=== PATIENT | male | born 1985 | race Caucasian/White ===

== ENCOUNTER 2023-03-27 06:18 | Inpatient (IN) | payer SELFPAY ==
[~2023-03-27] VITALS: Ht 188 cm; Wt 130.2 kg
[2023-03-27] MEDS ORDERED: LORAZEPAM 2MG/ML CPJ IM STA (06:28)
[2023-03-27] MEDS ORDERED: DIPHENHYDRAMINE 50MG/ML VIAL IM STA (06:28)
[2023-03-27] MEDS ORDERED: HALOPERIDOL LACTATE 5MG/ML VIAL IM STA (06:28)
[2023-03-27] MEDS ORDERED: LORAZEPAM 2MG/ML CPJ IM ONE (06:45)
[2023-03-27] MEDS ORDERED: HALOPERIDOL LACTATE 5MG/ML VIAL IM ONE (06:45)
[2023-03-27 07:44] LABS: HEMATOCRIT. 46.1 % (42.0-52.0); HEMOGLOBIN. 15.4 g/dL (14.0-18.0); MEAN CORPUSCULAR HEMOGLOBIN 28.7 pg (28.0-32.0); MEAN CORPUSCULAR HGB CONC 33.4 g/dL (31.0-37.0); MEAN CORPUSCULAR VOLUME 85.9 fL (80.0-94.0); MEAN PLATELET VOLUME 8.7 fl (7.4-10.4); PLATELET 252 x1000/uL (130-400); RED BLOOD CELL COUNT 5.37 mill/uL (4.7-6.1); RED CELL DISTRIBUTION WIDTH 13.8 % (11.6-14.6); WHITE BLOOD COUNT 21.2 x1000/uL (4.5-11.0)
[2023-03-27 07:56] LABS: DIFFERENTIAL COMMENT 1
[2023-03-27 08:31] LABS: CHLORIDE 114 mEq/L (98-107); INDEX HEMOLYSI 1 (1-3); INDEX ICTERIC 1 (1-4); INDEX LIPEMIC 1 (1-3); POTASSIUM 3.2 mEq/L (3.5-5.1); SODIUM 145 mEq/L (136-145)
[2023-03-27 08:40] LABS: ALANINE AMINOTRANSFERASE 46 IU/L (13-61); ALBUMIN 3.8 g/dL (3.4-5.0); ASPARTATE AMINOTRANSFERASE 53 IU/L (15-37); BILIRUBIN TOTAL 0.3 mg/dL (0.1-1.0); CARBON DIOXIDE 14 mEq/L (21-32); CREATININE 1.6 mg/dL (0.6-1.3); ETHANOL BLOOD 62 mg/dL (-10); GLUCOSE 103 mg/dL (70-105); PROTEIN TOTAL 7.2 g/dL (6.0-8.3); UREA NITROGEN BLOOD 10 mg/dL (7-21)
[2023-03-27 08:49] LABS: PLATELET ESTIMATE NORMAL
[2023-03-27] MEDS ORDERED: SODIUM CHLORIDE 0.9% 1,000 ML IV ONE ×2 (09:30→11:45)
[2023-03-27 11:36] LABS: *AMPHETAMINES SCREEN URINE PRESUMTIVE POSITIVE (NEGATIVE); *BARBITURATES SCREEN URINE NEGATIVE (NEGATIVE); *BENZODIAZEPINES SCREEN URINE NEGATIVE (NEGATIVE); *COCAINE SCREEN URINE NEGATIVE (NEGATIVE); CANNABINOID URINE SCREEN NEGATIVE (NEGATIVE); ECSTASY MDMA SCREEN URINE NEGATIVE (NEGATIVE); METHADONE URINE SCREEN NEGATIVE (NEGATIVE); OPIATES URINE SCREEN NEGATIVE (NEGATIVE); PHENCYCLIDINE URINE SCREEN NEGATIVE (NEGATIVE)
[2023-03-27 19:05] VITALS: BP 139/92; PULSE 121; RESP 25
[2023-03-27 19:30] VITALS: BP 139/92; PULSE 121; RESP 25; TEMP 99.2
[2023-03-27 19:32] VITALS: BP 147/97; PULSE 132; RESP 27; TEMP 99.2
[2023-03-27] MEDS ORDERED: ZOLPIDEM TARTRATE 5MG TABLET PO PRN (20:15)
[2023-03-27] MEDS ORDERED: ACETAMINOPHEN 325MG TABLET PO PRN (20:15)
[2023-03-27] MEDS ORDERED: LORAZEPAM 2MG/ML CPJ IV PRN (20:15)
[2023-03-27] MEDS ORDERED: POTASSIUM CHLORIDE 20MEQ TABLET SR PO NR (20:15)
[2023-03-27] MEDS ORDERED: ONDANSETRON HCL 4MG/2ML INJ IV PRN (20:15)
[2023-03-27] MEDS ORDERED: MVI, ADULT NO.1 10 ML, FOLIC ACID 1 MG, THIAMINE HCL 100 MG in SODIUM CHLORIDE 0.9% 1,0... IV ONE ×4 (21:30)
[2023-03-27] MEDS: ACETAMINOPHEN 325MG TABLET PO PRN (21:33)
[2023-03-28] VITALS: BP 144/81; PULSE 110; RESP 12; TEMP 99
[2023-03-28 00:20] LABS: CLARITY URINE CLEAR (CLEAR); COLOR URINE YELLOW (YELLOW); GLUCOSE URINE NEGATIVE (NEGATIVE); KETONES URINE 2+ (NEGATIVE); LEUKOCYTE ESTERASE URINE NEGATIVE (NEGATIVE); NITRITE URINE NEGATIVE (NEGATIVE); OCCULT BLOOD URINE 3+ (NEGATIVE); PH URINE 5.5 (4.5-8.0); PROTEIN URINE 2+ (NEGATIVE); SPECIFIC GRAVITY URINE 1.015 (1.005-1.030); UROBILINOGEN URINE 0.2 E.U./dL (0.2-1.0)
[2023-03-28 00:23] LABS: BACTERIA URINE NONE SEEN; SQUAMOUS EPITHELIAL CELL URINE NONE SEEN /lpf (RARE/1+); YEAST URINE NONE SEEN
[2023-03-28 03:04] LABS: RBC URINE 0-2 /hpf (0-2)
[2023-03-28 04:00] VITALS: BP 138/90; PULSE 114; RESP 25; TEMP 99.2
[2023-03-28 06:02] LABS: BASOPHILS % 0.3 % (0.0-2.0); EOSINOPHILS % 0.2 % (0.0-5.0); HEMOGLOBIN. 14.4 g/dL (14.0-18.0); LYMPHOCYTES % 16.9 % (20.0-50.0); MEAN CORPUSCULAR HEMOGLOBIN 29.8 pg (28.0-32.0); MEAN CORPUSCULAR HGB CONC 35.1 g/dL (31.0-37.0); MEAN CORPUSCULAR VOLUME 84.9 fL (80.0-94.0); MEAN PLATELET VOLUME 8.4 fl (7.4-10.4); MONOCYTES % 12.5 % (2.0-8.0); NEUTROPHILS % 70.1 % (40.0-76.0); PLATELET 202 x1000/uL (130-400); RED BLOOD CELL COUNT 4.83 mill/uL (4.7-6.1); RED CELL DISTRIBUTION WIDTH 13.8 % (11.6-14.6); WHITE BLOOD COUNT 10.5 x1000/uL (4.5-11.0)
[2023-03-28 06:27] LABS: CHLORIDE 112 mEq/L (98-107); INDEX HEMOLYSI 1 (1-3); INDEX ICTERIC 1 (1-4); INDEX LIPEMIC 1 (1-3); POTASSIUM 3.7 mEq/L (3.5-5.1); SODIUM 141 mEq/L (136-145)
[2023-03-28] MEDS: SODIUM CHLORIDE 0.9% 1,000 ML IV SCH ×2 (06:48→15:00)
[2023-03-28 07:00] LABS: ALANINE AMINOTRANSFERASE 100 IU/L (13-61); ALBUMIN 3.1 g/dL (3.4-5.0); ASPARTATE AMINOTRANSFERASE 265 IU/L (15-37); BILIRUBIN TOTAL 1.3 mg/dL (0.1-1.0); CALCIUM 8.1 mg/dL (8.5-10.1); CARBON DIOXIDE 23 mEq/L (21-32); CREATININE 1.1 mg/dL (0.6-1.3); GLUCOSE 104 mg/dL (70-105); PHOSPHORUS 3.3 mg/dL (2.5-4.9); UREA NITROGEN BLOOD 8 mg/dL (7-21)
[2023-03-28 07:09] LABS: CREATINE KINASE 10795 IU/L (39-308)
[2023-03-28 08:00] VITALS: BP 143/84; PULSE 116; RESP 36; TEMP 99
[2023-03-28] MEDS: ACETAMINOPHEN 325MG TABLET PO PRN (08:45)
[2023-03-28 12:00] VITALS: BP 144/91; PULSE 103; RESP 12; TEMP 99.2
[2023-03-28] MEDS: HYDROCODONE/ACETAMINOPHEN 10/325MG TABLET PO PRN ×2 (13:35→21:17)
[2023-03-28 16:00] VITALS: BP 140/94; PULSE 103; RESP 13; TEMP 99.1
[2023-03-28 20:00] VITALS: BP 139/81; PULSE 100; RESP 16; TEMP 98.6
[2023-03-28] MEDS: KETOROLAC 30MG/ML VIAL IV PRN (23:09)
[2023-03-29] VITALS: BP 131/90; PULSE 104; RESP 15; TEMP 98.7
[2023-03-29] MEDS: SODIUM CHLORIDE 0.9% 1,000 ML IV SCH ×2 (00:09→11:51)
[2023-03-29 04:00] VITALS: BP 137/91; PULSE 93; RESP 19; TEMP 98.6
[2023-03-29 08:00] VITALS: BP 137/89; PULSE 101; RESP 19; TEMP 98.6
[2023-03-29] MEDS ORDERED: NALOXONE HCL 0.4MG/ML VIAL IV PRN (09:15)
[2023-03-29] MEDS: HYDROCODONE/ACETAMINOPHEN 10/325MG TABLET PO PRN (10:09)
[2023-03-29 12:00] VITALS: BP 146/70; PULSE 106; RESP 16; TEMP 98.6
[2023-03-29 14:02] VITALS: BP 146/70; PULSE 106; TEMP 98.6; O2SAT 95
[2023-03-29 14:41] VITALS: BP_SYST 130; PULSE 90; RESP 20
[2023-03-29] MEDS: KETOROLAC 30MG/ML VIAL IV PRN (14:41)
== END 2023-03-29 15:00 | disposition home or self-care (01) | DRG 342 ==
LOC: ER 07:19 → 3WST 17:08
PROVIDERS: ADMIT Internal Medicine; ATTEND Internal Medicine
DX: S82.841A Displaced bimalleolar fracture of right lower leg, initial encounter for closed fracture (principal); G92.8 Other toxic encephalopathy; M62.82 Rhabdomyolysis; F15.90 Other stimulant use, unspecified, uncomplicated; Z72.0 Tobacco use; Z78.1 Physical restraint status; X58.XXXA Exposure to other specified factors, initial encounter; Y93.89 Activity, other specified; Y92.89 Other specified places as the place of occurrence of the external cause; Y99.8 Other external cause status
CPT/HCPCS: 36415; 71045; 72170; 73562; 73600; 73610; 80053; 80305; 80320; 81003; 82550; 83735; 84100; 85025; 97162; 99285; J1200; J1630; J1885; J2060; J3411; J3490; J7030; G0480